=== PATIENT | female | born 1965 | race Caucasian/White ===

== ENCOUNTER 2017-10-25 16:00 | Emergency (ER) | payer BC, OTHER ==
[~2017-10-25] VITALS: Ht 154.9 cm; Wt 67.1 kg
[~2017-10-25 16:00] MED LIST: ASPIR 8181 MG PO; ATENOLOL50 MG PO; BENTYL10 MG PO; CARTIA XT180 MG PO; CLARITHROMYCIN250 MG PO; DYCLONINE HCL5 GM PO; FERROUS SULFAT325 MG PO; FLAGYL500 MG PO; FOLIC ACID1 MG PO; GABAPENTIN300 MG PO; GAS RELIEF80 M1 PO; LISINOPRIL-HCT1 EAC2 PO; MECLIZINE HCL25 M1 PO; METHOTREXATE S2.5 MG PO; NEXIUM40 MG PO; OXYBUTYNIN; OXYBUTYNIN PO; PLAQUENIL200 MG PO; QUESTRAN PACKET4 GM PO; QUESTRAN POWDE378 GM PO; REMERON15 M1 PO; SIMETHICONE80 MG PO; SUCRALFATE1 GM PO; SYNTHROID50 MCG PO; TYLENOL # 31 EA PO; ULTRAM50 MG PO; VENTOLIN HFA18 GM INH; VICODIN HP 10-1 EACH PO; Z.0.FOLIC ACID1 MG PO; Z.0.MELOXICAM7.5 MG PO; Z.0.PROBIOTIC1 EACH PO; Z.0.PROTONIX40 MG PO; Z.0.SUCRALFATE1 GM PO; Z.0.TEMAZEPAM15 MG PO; Z.0.TIZANIDINE HCL4 PO; Z.0.ZOFRAN4 MG PO; Z.1.CIPROFLOXACIN500 PO; ZOLPIDEM TARTRA10 MG PO; [UNRECOGNIZED DRUG - OTHER] PO
[2017-10-25] MEDS ORDERED: DIATRIZOATE MEGL/DIATRIZOA SOD 30 ML BTL PO ONE (17:08)
[2017-10-25 17:44] LABS: BILIRUBIN,URINE NEGATIVE (NEGATIVE); CLARITY,URINE CLEAR (CLEAR); COLOR,URINE YELLOW (YELLOW); KETONES,URINE NEGATIVE (NEGATIVE); LEUKOCYTE ESTERASE ,URINE TRACE (NEGATIVE); NITRITE,URINE NEGATIVE (NEGATIVE); PROTEIN,URINE DIPSTICK NEGATIVE (NEGATIVE); URINE UROBILINOGEN 0.2 mg/dL (0.2 - 1)
[2017-10-25 17:49] LABS: BACTERIA,URINE RARE /HPF; EPITHELIAL CELLS,URINE FEW /LPF; MUCUS,URINE MANY (RARE); RBC,URINE 0-5 /HPF (0-5)
[2017-10-25 20:12] LABS: BASOPHILS # (AUTO) 0.1 (0.0-0.1); BASOPHILS % 0.5 % (0.0-1.0); EOSINOPHILS # (AUTO) 0.4 (0.0-0.4); EOSINOPHILS % 3.1 % (0.0-6.0); HEMATOCRIT 36.7 % (34.2-44.1); HEMOGLOBIN 12.2 g/dL (12.0-16.0); LYMPHOCYTES % 16.8 % (18.0-39.1); MEAN CORPUSCULAR HEMOGLOBIN 31.3 pg (28-32); MEAN CORPUSCULAR HGB CONC 33.2 g/dL (31-35); MEAN CORPUSCULAR VOLUME 94.1 fL (81-99); MONOCYTES # (AUTO) 1.3 (0.2-0.8); MONOCYTES % 11.4 % (4.4-11.3); NEUTROPHILS # (AUTO) 7.9 (2.1-6.9); NEUTROPHILS % 67.8 % (38.7-80.0); PLATELET COUNT 273 x10e3/uL (140-360); RED CELL DISTRIBUTION WIDTH 12.7 % (11.7-14.4)
[2017-10-25 20:31] LABS: ALBUMIN 4.1 g/dL (3.5-5.0); ANION GAP 16.7 mmol/L (8-16); CREATININE, SERUM 1.26 mg/dL (0.57-1.11); POTASSIUM 4.7 mmol/L (3.5-5.1)
[2017-10-25] MEDS ORDERED: ONDANSETRON HCL INJ 2 MG/ML VIAL IV STA (21:04)
[2017-10-25] MEDS ORDERED: ESIDRIX25 MG PO (21:10)
[2017-10-25] MEDS ORDERED: LISINOPRIL-HCT1 EAC2 PO (21:10)
--- NOTE | 2017-10-25 21:59 | Diagnostic Imaging Report ---
EXAM: CT ABDOMEN AND PELVIS without IV CONTRAST INDICATION: Crohn's disease, left lower quadrant pain COMPARISON: CT of the abdomen and pelvis without IV contrast November 15, 2014 TECHNIQUE: The abdomen and pelvis were scanned using a multidetector helical scanner. Coronal and sagittal reformations were obtained. Routine protocol performed. IV Contrast: None Oral Contrast: Positive oral contrast CTDIvol has been reviewed. It is below the limits set by the Radiation Protocol Committee (RPC). FINDINGS: LOWER THORAX: No consolidations LIVER: No masses BILIARY: Cholecystectomy. No ductal dilation. SPLEEN: No masses PANCREAS: No masses ADRENALS: No nodules RIGHT KIDNEY: No nephroureterolithiasis or hydronephrosis. LEFT KIDNEY: No nephroureterolithiasis or hydronephrosis. GI TRACT: Marked thickening of the terminal ileum and with adjacent inflammation and reactive lymph nodes. Mild wall thickening of the descending and sigmoid colon with loss of colonic haustra. Mild inflammation in the left lower quadrant around the descending colon/sigmoid colon junction. Moderate amount of retained stool in the rectum and sigmoid colon. The appendix is not identified. VESSELS: Unremarkable PERITONEUM/RETROPERITONEUM: No free air or fluid LYMPH NODES: Subcentimeter reactive lymph nodes right lower quadrant. REPRODUCTIVE ORGANS: Uterus and ovaries are not visualized. BLADDER: Normal SOFT TISSUES: Normal BONES: No suspicious bone lesions. IMPRESSION: Inflammation predominantly involving the terminal ileum and descending colon/sigmoid colon junction. Findings consistent with Crohn's flare. No evidence of obstruction, perforation or abscess formation. Signed by: Dr. Elise Lizarraga M.D. on 10/25/2017 9:56 PM
[2017-10-25] MEDS ORDERED: HYDROMORPHONE 1MG/1ML INJ IV STA (22:08)
[2017-10-25] MEDS ORDERED: SODIUM CHLORIDE 0.9% 1000ML 1,000 ML IV SCH (22:45)
== END 2017-10-26 01:20 | disposition home or self-care (01) ==
LOC: ER 16:00
DX: R10.12 Left upper quadrant pain (principal); R10.32 Left lower quadrant pain; R11.0 Nausea; K50.10 Crohn's disease of large intestine without complications; I10 Essential (primary) hypertension; J45.909 Unspecified asthma, uncomplicated; K21.9 Gastro-esophageal reflux disease without esophagitis; I25.2 Old myocardial infarction
CPT/HCPCS: 36415; 74176; 80053; 81001; 82150; 83690; 85025; 99284; J1170; J2405